=== PATIENT | female | born 1985 | race Asian ===

== ENCOUNTER 2018-02-03 00:40 | Inpatient (IN) | payer BC ==
[~2018-02-03] VITALS: Ht 162.7 cm; Wt 70.5 kg
[2018-02-03] VITALS (72 sets, daily range): BP systolic 95–139; BP diastolic 44–77; PULSE 60–112; TEMP 97.7–99.1
[2018-02-03] MEDS ORDERED: PRENATAL MVI (01:14)
[2018-02-03 02:22] LABS: BASO % 0.4 % (0.0-2.0); EOS % 0.4 % (0-4.0); GRAN % 83.6 % (42.2-75.2); HEMATOCRIT 42.3 % (37.0-47.0); HEMOGLOBIN 14.3 g/dl (12.5-16.0); LYMPH # 1.2 (1.2-3.4); MEAN CELL VOLUME 95 fl (80.0-100.0); MEAN CORPUSCULAR HEMOGLOBIN 32 pg (27.0-31.0); MEAN CORPUSCULAR HGB CONC 34 g/dl (33.0-37.0); MEAN PLATELET VOLUME 11.9 fl (7.4-10.4); MONO # 0.4 (0.1-0.6); MONO % 4.1 % (1.7-9.3); PLATELET COUNT 151 K/mm3 (130-400); RED BLOOD COUNT 4.46 M/mm3 (4.10-5.30); REDCELL DISTRIBUTION WIDTH-CV 13.4 % (11.5-14.5)
[2018-02-04] VITALS: BP 123/59; PULSE 60; TEMP 97.8
[2018-02-04 04:20] VITALS: BP 109/47; PULSE 59; TEMP 98
[2018-02-04 07:15] VITALS: BP 113/50; PULSE 65; TEMP 97.4
[2018-02-04 07:30] LABS: BASO % 0.3 % (0.0-2.0); EOS # 0.1 (0.0-0.7); EOS % 0.5 % (0-4.0); GRAN # 10.6 (1.4-6.5); GRAN % 86.7 % (42.2-75.2); HEMOGLOBIN 12.6 g/dl (12.5-16.0); LYMPH % 7.7 % (20.0-51.0); MEAN CELL VOLUME 95 fl (80.0-100.0); MEAN CORPUSCULAR HEMOGLOBIN 32 pg (27.0-31.0); MEAN CORPUSCULAR HGB CONC 34 g/dl (33.0-37.0); MEAN PLATELET VOLUME 11.9 fl (7.4-10.4); MONO # 0.5 (0.1-0.6); MONO % 4.4 % (1.7-9.3); PLATELET COUNT 107 K/mm3 (130-400); RED BLOOD COUNT 3.89 M/mm3 (4.10-5.30); REDCELL DISTRIBUTION WIDTH-CV 13.6 % (11.5-14.5)
[2018-02-04 11:22] VITALS: BP 100/49; PULSE 619; TEMP 98.4
[2018-02-04] MEDS ORDERED: IBU600 MG PO (13:01)
[2018-02-04] MEDS ORDERED: PERCOCET 325 MG1 TA2 PO (13:01)
[2018-02-04 16:00] VITALS: BP 109/53; PULSE 73; TEMP 97.6
[2018-02-04 21:05] VITALS: BP 113/50; PULSE 68; TEMP 98
[2018-02-05 09:00] VITALS: BP 117/57; PULSE 76; TEMP 97.7
[2018-02-05 16:46] VITALS: BP 118/58; PULSE 92; TEMP 98.3
[2018-02-05 20:30] VITALS: BP 125/64; PULSE 97; TEMP 98.8
[2018-02-06 07:00] VITALS: BP 113/48; PULSE 83; TEMP 97.4
== END 2018-02-06 13:56 | disposition home or self-care (01) | DRG 788 ==
LOC: LDRO 00:40 → LDR 01:40 → OB 18:30
PROVIDERS: Obstetrics & Gynecology
PROC: 10D00Z1 Extraction of Products of Conception, Low, Open Approach (ICD-10-PCS; principal; 2018-02-03)
DX: O48.0 Post-term pregnancy (principal); Z3A.40 40 weeks gestation of pregnancy; Z37.0 Single live birth; O77.0 Labor and delivery complicated by meconium in amniotic fluid; O76 Abnormality in fetal heart rate and rhythm complicating labor and delivery; O62.1 Secondary uterine inertia; O75.89 Other specified complications of labor and delivery
CPT/HCPCS: J0690; J1885; J2175; J2210; J2250; J2370; J2405; J2590; J2795; J3010; J7120